=== PATIENT | female | born 1965 | race Two or more races ===

== ENCOUNTER 2016-11-14 21:26 | Emergency (ER) | payer OTHER ==
[2016-11-14] MEDS ORDERED: IPRATROPIUM/ALBUTEROL 3 ML DEYVIAL ONE (21:34)
[2016-11-14] MEDS ORDERED: IPRATROPIUM/ALBUTEROL 3 ML DEYVIAL IH ONE (21:35)
[2016-11-14 21:43] VITALS: TEMP 98.1; O2SAT 92
[2016-11-14] MEDS ORDERED: ALBUTEROL 3 ML DEYVIAL ONE ×2 (22:03→23:25)
[2016-11-14] MEDS ORDERED: ALBUTEROL 3 ML DEYVIAL IH ONE ×2 (22:08→23:30)
[2016-11-14] MEDS ORDERED: methylPREDNISolone SOD SUCC 125 MG/2 ML VIAL ONE (22:11)
[2016-11-14] MEDS ORDERED: methylPREDNISolone SOD SUCC 125 MG/2 ML VIAL IVP ONE (22:15)
--- NOTE | 2016-11-14 22:15 | CPEKG ---
Heart Rate: 109 RR Interval: 550 P-R Interval: 144 QRSD Interval: 86 QT Interval: 304 QTC Interval: 410 P [place]: 64 QRS [place]: 16 T Wave [place]: 83 EKG Severity - ABNORMAL ECG - EKG Impression: SINUS TACHYCARDIA EKG Impression: REPOL ABNRM SUGGESTS ISCHEMIA, ANT-LAT LEADS Electronically Signed By: Ashutosh Hughes 14-Nov-2016 23:41:01
[2016-11-14 22:19] LABS: % IMMATURE GRANULYOCYTES 0.3 % (0.0-1.1); ABSOLUTE IMMATURE GRANULOCYTES 0.05 10^3/uL (0.00-0.10); ADD DIFF? NO; ADD MORPH? NO; ADD SCAN? NO; ATYPICAL LYMPHOCYTE FLAG 0 (0-99); FRAGMENT RBC FLAG 0 (0-99); HEMATOCRIT 45.1 % (38.0-47.0); HEMOGLOBIN 14.6 g/dL (12.6-16.3); LEFT SHIFT FLG 0 (0-99); LIPEMIA HEMOLYSIS FLAG 80 (0-99); MEAN CELL HEMOGLOBIN 25.6 pg (27.9-34.1); MEAN CELL HEMOGLOBIN CONCENTR. 32.4 g/dL (32.4-36.7); MEAN PLATELET VOLUME 10.8 fL (8.7-11.7); PLATELET CLUMPS FLAG 10 (0-99); PLATELET COUNT 304 10^3/uL (150-400); RED BLOOD CELL COUNT 5.71 10^6/uL (4.18-5.33); RED CELL DISTRIBUTION WIDTH 15.8 % (11.5-15.2)
[2016-11-14] MEDS ORDERED: AZITHROMYCIN 250 MG TAB PO ONE (22:24)
[2016-11-14 22:28] LABS: ANION GAP 18 mEq/L (8-16); CARBON DIOXIDE 23 mEq/l (22-31); CHLORIDE 102 mEq/L (97-110); CREATININE 0.7 mg/dL (0.6-1.0); GLOMERULAR FILTRATION RATE > 60; GLUCOSE 123 mg/dL (70-100); POTASSIUM 3.4 mEq/L (3.5-5.2); SODIUM 143 mEq/L (134-144)
[2016-11-14 22:41] LABS: TROPONIN I < 0.012 ng/mL (0-0.034)
--- NOTE | 2016-11-14 22:45 | UCPHY ---
H & P Patient Type: New Chief Complaint Nursing Narrative: c/o cough and sinus congestion x 1 month. Time Seen by Provider: 11/14/16 22:03 HPI/ROS: This patient has had cough for 1 month now. She saw her physician 1 week ago that was started on albuterol inhaler and Augmentin but has not improved is day developed dyspnea associated with her shortness of breath increasing wheezing. She complains of the shortness of breath the prompted her visit she has not had a spacer with her albuterol inhaler. She notes no other exacerbating factors. ROS: Mild fatigue. No other constitutional symptoms. HEENT: Nasal congestion no headache. Neuro: No confusion. No focal neuro complaints pulmonary: No pleuritic pain. Cardiovascular: No lightheadedness. No chest pain. GI: No abdominal pain. No vomiting. No diarrhea. Source: Patient, Family Exam Limitations: Language barrier (Her translates for her.) - Personal History LMP (Females 10-55): Now - Medical/Surgical History PMH: Hypertension off her atenolol for 1 week due to running out of the medication Other PMH: htn - Family History Significant Family History: No pertinent family hx - Social History Smoking Status: Never smoked Alcohol Use: None Drug Use: None - Physical Exam Exam: General Appearance: Pleasant female Alert, no distress but obvious increased work of breathing. Eyes: Pupils equal and round no pallor or injection. ENT, Mouth: Mucous membranes moist. Respiratory: Tight wheezing bilaterally with tachypnea. No rales. Mild rhonchi. Cardiovascular: Tachycardia. No JVD. No peripheral edema. Gastrointestinal: Abdomen is soft and nontender, no masses, bowel sounds normal. Neurological: Alert with no focal deficits Skin: Warm and dry, no rashes. Musculoskeletal: Neck is supple nontender. Extremities are symmetrical, full range of motion. Psychiatric: Mood and affect normal DIFFERENTIAL DIAGNOSIS: After history and physical exam differential diagnosis was considered for bronchitis with reactive airways, pneumonia, hypertensive emergency with CHF, Constitutional: Initial Vital Signs Temperature (C) 36.7 C 11/14/16 21:40 Heart Rate 107 H 11/14/16 21:40 Respiratory Rate 24 H 11/14/16 21:40 Blood Pressure 233/133 H 11/14/16 21:40 O2 Sat (%) 92 11/14/16 21:40 O2 Delivery Mode Room Air Allergies/Adverse Reactions: No Known Allergies Allergy (Verified 06/09/12 21:14) Home Medications: Medication Instructions Recorded Atenolol 25 mg PO BID 06/09/12 Albuterol Hfa Anes Only [Proair 11/14/16 Hfa Icu (*)] Albuterol Hfa Anes Only [Proair 2 puffs IH Q4 PRN #1 mdi 11/14/16 Hfa Icu (*)] Albuterol [Proventil Neb] 3 ml IH Q4 PRN #25 deyvial 11/14/16 Atenolol [Tenormin 25 mg (*)] 25 mg PO BID #60 tab 11/14/16 Augmentin 875 MG TAB (*) 11/14/16 Azithromycin [Zithromax] 250 mg PO DAILY #4 tab 11/14/16 predniSONE 60 mg PO DAILY #17 tab 11/14/16 Medical Decision Making - Diagnostics EKG Interpretation: 12 lead EKG performed at 10:13 p.m. reveals sinus tachycardia 109 Intervals: Normal throughout Frannie: Normal throughout ST depression anterolaterally cannot rule out ischemia Imaging: Chest x-ray: Airway disease with no pneumonia by my interpretation ED Course/Re-evaluation: IV Clonidine p.o. for hypertension with improvement DuoNeb and albuterol neb with increased aeration decreased wheeze subjective improvement, peak flow 280 Zithromax p.o. Review of her labs reveals leukocytosis Troponin and BNP are normal. Electrolytes unremarkable Discussion: Patient with bronchitis significant reactive airway disease causing dyspnea that improved significantly with treatment here. She also has hypertensive urgency but no evidence of end-organ injury. I think that her mild strain pattern on EKG is attributable to her hypertension but there is no evidence of cardiac injury with a normal troponin. She responded well with the clonidine with improvement in her blood pressure. The time discharge she is comfortable and will go home with no albuterol neb machine, Zithromax, she will restart her atenolol and follow up primary care physician. She understands the need to go the emergency department if she has any worsening symptoms - Data Points Laboratory Results: Laboratory Results 11/14/16 21:50 11/14/16 21:50 11/14/16 11/14/16 11/14/16 21:50 21:50 21:50 WBC 15.75 10^3/uL H 10^3/uL (3.80-9.50) RBC 5.71 10^6/uL H 10^6/uL (4.18-5.33) Hgb 14.6 g/dL g/dL (12.6-16.3) Hct 45.1 % % (38.0-47.0) MCV 79.0 fL L fL (81.5-99.8) MCH 25.6 pg L pg (27.9-34.1) MCHC 32.4 g/dL g/dL (32.4-36.7) RDW 15.8 % H % (11.5-15.2) Plt Count 304 10^3/uL 10^3/uL (150-400) MPV 10.8 fL fL (8.7-11.7) Neut % (Auto) 55.8 % % (39.3-74.2) Lymph % (Auto) 32.3 % % (15.0-45.0) [place] % (Auto) 6.5 % % (4.5-13.0) Eos % (Auto) 4.3 % % (0.6-7.6) Baso % (Auto) 0.8 % % (0.3-1.7) Nucleat RBC Rel Count 0.0 % % (0.0-0.2) Absolute Neuts (auto) 8.81 10^3/uL H 10^3/uL (1.70-6.50) Absolute Lymphs (auto) 5.08 10^3/uL H 10^3/uL (1.00-3.00) Absolute Monos (auto) 1.02 10^3/uL H 10^3/uL (0.30-0.80) Absolute Eos (auto) 0.67 10^3/uL H 10^3/uL (0.03-0.40) Absolute Basos (auto) 0.12 10^3/uL H 10^3/uL (0.02-0.10) Absolute Nucleated RBC 0.00 10^3/uL 10^3/uL (0-0.01) Immature Gran % 0.3 % % (0.0-1.1) Immature Gran # 0.05 10^3/uL 10^3/uL (0.00-0.10) Sodium 143 mEq/L mEq/L (134-144) Potassium 3.4 mEq/L L mEq/L (3.5-5.2) Chloride 102 mEq/L mEq/L (97-110) Carbon Dioxide 23 mEq/l mEq/l (22-31) Anion Gap 18 mEq/L H mEq/L (8-16) BUN 6 mg/dL L mg/dL (7-23) Creatinine 0.7 mg/dL mg/dL (0.6-1.0) Estimated GFR > 60 Glucose 123 mg/dL H mg/dL (70-100) Calcium 9.0 mg/dL mg/dL (8.5-10.4) Troponin I < 0.012 ng/mL ng/mL (0-0.034) NT-Pro-B Natriuret Pep 62 pg/mL pg/mL (0-125) Medications Given: Discontinued Medications Albuterol (Proventil Neb) 3 ml IH EDNOW ONE Stop: 11/14/16 22:09 Last Admin: 11/14/16 22:09 Dose: 3 ml Albuterol/Ipratropium (Duoneb) 3 ml IH EDNOW ONE Stop: 11/14/16 21:36 Last Admin: 11/14/16 21:35 Dose: 3 ml Azithromycin (Zithromax) 500 mg PO EDNOW ONE PRN Reason: Protocol Stop: 11/14/16 22:25 Last Admin: 11/14/16 22:30 Dose: 500 mg Clonidine (Catapres) 0.2 mg PO EDNOW ONE Stop: 11/14/16 22:12 Last Admin: 11/14/16 22:18 Dose: 0.2 mg Methylprednisolone Sodium Succinate (Solu-Medrol) 125 mg IVP EDNOW ONE Stop: 11/14/16 22:16 Last Admin: 11/14/16 22:16 Dose: 125 mg Departure - Departure Disposition: Home, Routine, Self-Care Clinical Impression: Dyspnea Qualifiers: Dyspnea type: unspecified Qualified Code(s): R06.00 - Dyspnea, unspecified Acute bronchitis Qualifiers: Bronchitis organism: unspecified organism Qualified Code(s): J20.9 - Acute bronchitis, unspecified Reactive airway disease Qualifiers: Asthma severity: unspecified severity Asthma complication type: with acute exacerbation Qualified Code(s): J45.901 - Unspecified asthma with (acute) exacerbation Hypertension Qualifiers: Hypertension type: essential hypertension Qualified Code(s): I10 - Essential ( primary) hypertension Condition: Good Instructions: Acute Bronchitis (ED), Hypertension (ED) Additional Instructions: Diagnosis: 1. Acute bronchitis 2. Dyspnea 3. Hypertension Plan: Restart your Tylenol tomorrow morning and continue taking daily. Zithromax antibiotic Prednisone steroid as prescribed Albuterol inhaler with spacer or albuterol nebulizer for cough, wheeze or shortness of breath Go to the emergency department for any significant worsening despite the treatment plan. Follow up with primary care physician sometime in the next 3-7 days Referrals: CAIO DOVE,. [Primary Care Provider] - As per Instructions Prescriptions: Albuterol [Proventil Neb] 3 ml IH Q4 PRN #25 deyvial PRN Reason: Wheezing Albuterol Hfa Anes Only [Proair Hfa Icu (*)] 2 puffs IH Q4 PRN #1 mdi PRN Reason: Wheezing Atenolol [Tenormin 25 mg (*)] 25 mg PO BID #60 tab Azithromycin [Zithromax] 250 mg PO DAILY #4 tab predniSONE 60 mg PO DAILY #17 tab - PQRS PQRS Measurement: NA
[2016-11-15 00:01] VITALS: BP 182/109; PULSE 109; RESP 18
== END 2016-11-14 23:30 | disposition home or self-care (01) ==
LOC: CED 21:26
DX: J20.9 Acute bronchitis, unspecified (principal); J45.901 Unspecified asthma with (acute) exacerbation; R06.00 Dyspnea, unspecified; I10 Essential (primary) hypertension
CPT/HCPCS: 71020-PO; 80048-PO; 83880-PO; 84484-PO; 85025-PO; 93010-PO; 96374-PO; 99205-PO; G0463-PO

== ENCOUNTER 2017-04-08 14:17 | Emergency (ER) | payer OTHER ==
[2017-04-08] MEDS ORDERED: NS 1,000 ML IV ONE ×2 (14:42→15:39)
--- NOTE | 2017-04-08 14:42 | EDPHY ---
H & P Time Seen by Provider: 04/08/17 14:39 HPI/ROS: CHIEF COMPLAINT: Left flank pain, suprapubic pain HISTORY OF PRESENT ILLNESS: The patient is a 51-year-old female who presents to the emergency department with flank pain and suprapubic pain. Her symptoms started 3 days ago. She states it progressively worsened today. Her pain is severe. She has had dysuria with no frequency. No hematuria. She denies fevers or chills. No nausea vomiting. She had a urinary tract infection 2 months ago. Her last menstrual period was 03/26/2017. She is G3 para 3. No vaginal discharge. REVIEW OF SYSTEMS: My complete review of systems is negative except as mentioned in the HPI. Past Medical/Surgical History: Includes hypertension Past surgical history: x3 Social history: The patient does not smoke use alcohol. Smoking Status: Never smoked Physical Exam: Vitals noted. Afebrile. The 200/109, 79, 18, 36.5, 98% on room air GENERAL: No acute distress, alert. HEENT: Eyes normal to inspection, normal pharynx, no signs of dehydration. NECK: No thyromegaly, no lymphadenopathy, supple. RESPIRATORY: Clear to auscultation bilaterally, no rales, rhonchi or wheezing. CVS: Regular rate and rhythm, no rubs, murmurs, or gallops. ABDOMEN: Soft, mild suprapubic tenderness to palpation with no rebound or guarding, nondistended, no organomegaly. BACK: Normal to inspection, no CVA tenderness. SKIN: Normal color, no rash, warm, dry. No pallor. EXTREMITIES: No pedal edema, no joint swelling. NEURO/PSYCH: Alert and oriented, normal mood and affect Constitutional: Initial Vital Signs Temperature (C) 36.5 C 04/08/17 14:28 Heart Rate 79 04/08/17 14:28 Respiratory Rate 18 04/08/17 14:28 Blood Pressure 200/109 H 04/08/17 14:28 O2 Sat (%) 98 04/08/17 14:28 O2 Delivery Mode Room Air Allergies/Adverse Reactions: No Known Allergies Allergy (Verified 04/08/17 14:26) Home Medications: Medication Instructions Recorded Atenolol [Tenormin 25 mg (*)] 25 mg PO BID #60 tab 11/14/16 Medical Decision Making ED Course/Re-evaluation: In the emergency department I discussed possible etiologies with the patient. I answered all her questions. An IV was placed. Patient was given normal saline IV for hydration. Differential Diagnosis: My differential includes but is not limited to urinary tract infection, pyelonephritis, bacteremia, sepsis, ovarian cyst, ovarian torsion, , ectopic Departure - Departure Disposition: Home, Routine, Self-Care Clinical Impression: Acute left flank pain, Suprapubic pain, acute Condition: Good
[2017-04-08 14:47] LABS: COLOR YELLOW; LEUKOCYTE ESTERASE,URINE NEGATIVE (NEGATIVE); NITRITE,URINE NEGATIVE (NEGATIVE)
[2017-04-08] MEDS ORDERED: KETOROLAC 30 MG/1 ML SDV IVP ONE (15:39)
[2017-04-08] MEDS ORDERED: KETOROLAC 15 MG/1 ML SDV ONE (15:39)
--- NOTE | 2017-04-08 15:44 | EDPHY ---
H & P Time Seen by Provider: 04/08/17 14:39 Smoking Status: Never smoked Constitutional: Initial Vital Signs Temperature (C) 36.5 C 04/08/17 14:28 Heart Rate 79 04/08/17 14:28 Respiratory Rate 18 04/08/17 14:28 Blood Pressure 200/109 H 04/08/17 14:28 O2 Sat (%) 98 04/08/17 14:28 O2 Delivery Mode Room Air Allergies/Adverse Reactions: No Known Allergies Allergy (Verified 04/08/17 14:26) Home Medications: Medication Instructions Recorded Atenolol [Tenormin 25 mg (*)] 25 mg PO BID #60 tab 11/14/16 Doxycycline Monohydrate 100 mg PO BID #28 capsule 04/08/17 metroNIDAZOLE [Flagyl 500 mg (*)] 500 mg PO BID #14 tab 04/08/17 Medical Decision Making ED Course/Re-evaluation: Please see prior note by Dr. Fung for complete details of history and physical. I assumed care pending results of urine and re-evaluation. Patient' s urinalysis showed no evidence of infection or blood and she was not . I did a re-evaluation of the patient who complains of ongoing lower abdominal and bilateral left greater than right flank pain. In addition she complains of feeling very dizzy despite receiving 1 L of fluid. She describes the dizziness as like she is going to fall and also like the room is spinning. She denies any nausea or vomiting. Her symptoms been going on for couple days but are worse today. She also complains of some white vaginal discharge and recently irregular periods. Patient has a history of high blood pressure and states that she did take her blood pressure medicine this morning. Her blood pressure remained elevated during her year stay. We discussed the need to follow up with her primary care physician regarding this. I performed a pelvic exam which revealed thick white discharge, minimal cervical motion tenderness but marked bilateral adnexal tenderness and suprapubic tenderness and right adnexal fullness. Swabs were sent for GC, Chlamydia and bacterial vaginal pathogens. I suspect PID but given her fullness in her adnexae and elevated white blood cell count I was concerned about ovarian abscess or torsion. Therefore a pelvic ultrasound was obtained. Ultrasound showed uterine fibroids but no evidence of adnexal masses or torsion. Patient was treated for PID in the ED we discharged home on antibiotics. I discussed the diagnosis with the patient and she can call to get the results of the GC and chlamydia test. - Data Points Laboratory Results: Laboratory Results 04/08/17 14:46 04/08/17 14:46 04/08/17 04/08/17 04/08/17 16:00 16:00 14:46 WBC RBC Hgb Hct MCV MCH MCHC RDW Plt Count MPV Neut % (Auto) Lymph % (Auto) [place] % (Auto) Eos % (Auto) Baso % (Auto) Nucleat RBC Rel Count Absolute Neuts (auto) Absolute Lymphs (auto) Absolute Monos (auto) Absolute Eos (auto) Absolute Basos (auto) Absolute Nucleated RBC Immature Gran % Immature Gran # Sodium 141 mEq/L mEq/L (134-144) Potassium 3.7 mEq/L mEq/L (3.5-5.2) Chloride 107 mEq/L mEq/L (97-110) Carbon Dioxide 21 mEq/l L mEq/l (22-31) Anion Gap 13 mEq/L mEq/L (8-16) BUN 9 mg/dL mg/dL (7-23) Creatinine 0.7 mg/dL mg/dL (0.6-1.0) Estimated GFR > 60 Glucose 107 mg/dL H mg/dL (70-100) Calcium 9.0 mg/dL mg/dL (8.5-10.4) Urine Color Urine Appearance Urine pH Ur Specific [place] Urine Protein Urine Ketones Urine Blood Urine Nitrate Urine Bilirubin Urine Urobilinogen Ur Leukocyte Esterase Urine Glucose Urine Test Brianda species DNA Pending C.trachomatis RNA (TMA) Pending Gardnerella DNA Probe Pending N.gonorrhoeae RNA (TMA) Pending Trichomonas DNA Probe Pending 04/08/17 04/08/17 04/08/17 14:46 14:40 14:40 WBC 10.83 10^3/uL H 10^3/uL (3.80-9.50) RBC 4.65 10^6/uL 10^6/uL (4.18-5.33) Hgb 10.9 g/dL L g/dL (12.6-16.3) Hct 35.1 % L % (38.0-47.0) MCV 75.5 fL L fL (81.5-99.8) MCH 23.4 pg L pg (27.9-34.1) MCHC 31.1 g/dL L g/dL (32.4-36.7) RDW 15.5 % H % (11.5-15.2) Plt Count 340 10^3/uL 10^3/uL (150-400) MPV 11.7 fL fL (8.7-11.7) Neut % (Auto) 60.9 % % (39.3-74.2) Lymph % (Auto) 29.5 % % (15.0-45.0) [place] % (Auto) 7.0 % % (4.5-13.0) Eos % (Auto) 1.3 % % (0.6-7.6) Baso % (Auto) 1.0 % % (0.3-1.7) Nucleat RBC Rel Count 0.0 % % (0.0-0.2) Absolute Neuts (auto) 6.60 10^3/uL H 10^3/uL (1.70-6.50) Absolute Lymphs (auto) 3.19 10^3/uL H 10^3/uL (1.00-3.00) Absolute Monos (auto) 0.76 10^3/uL 10^3/uL (0.30-0.80) Absolute Eos (auto) 0.14 10^3/uL 10^3/uL (0.03-0.40) Absolute Basos (auto) 0.11 10^3/uL H 10^3/uL (0.02-0.10) Absolute Nucleated RBC 0.00 10^3/uL 10^3/uL (0-0.01) Immature Gran % 0.3 % % (0.0-1.1) Immature Gran # 0.03 10^3/uL 10^3/uL (0.00-0.10) Sodium Potassium Chloride Carbon Dioxide Anion Gap BUN Creatinine Estimated GFR Glucose Calcium Urine Color YELLOW Urine Appearance CLEAR Urine pH 7.0 (5.0-7.5) Ur Specific [place] <= 1.005 (1.002-1.030) Urine Protein NEGATIVE (NEGATIVE) Urine Ketones NEGATIVE (NEGATIVE) Urine Blood NEGATIVE (NEGATIVE) Urine Nitrate NEGATIVE (NEGATIVE) Urine Bilirubin NEGATIVE (NEGATIVE) Urine Urobilinogen 0.2 EU EU (0.2-1.0) Ur Leukocyte Esterase NEGATIVE (NEGATIVE) Urine Glucose NEGATIVE (NEGATIVE) Urine Test NEGATIVE Brianda species DNA C.trachomatis RNA (TMA) Gardnerella DNA Probe N.gonorrhoeae RNA (TMA) Trichomonas DNA Probe Medications Given: Discontinued Medications Ceftriaxone Sodium (Rocephin 250mg Vial) 500 mg IM EDNOW ONE PRN Reason: Protocol Stop: 04/08/17 16:10 Last Admin: 04/08/17 16:35 Dose: 500 mg Doxycycline Hyclate (Doxycycline Hyclate) 100 mg PO EDNOW ONE PRN Reason: Protocol Stop: 04/08/17 16:10 Last Admin: 04/08/17 16:34 Dose: 100 mg Sodium Chloride (Ns) 1,000 mls @ 0 mls/hr IV ONCE ONE PRN Reason: Wide Open Stop: 04/08/17 14:43 Last Admin: 04/08/17 14:44 Dose: 1,000 mls Sodium Chloride (Ns) 1,000 mls @ 0 mls/hr IV ONCE ONE; Wide Open PRN Reason: Protocol Stop: 04/08/17 15:40 Last Admin: 04/08/17 15:47 Dose: 1,000 mls Ketorolac Tromethamine (Toradol) 15 mg IVP EDNOW ONE Stop: 04/08/17 15:40 Last Admin: 04/08/17 15:48 Dose: 15 mg Metronidazole (Flagyl) 500 mg PO EDNOW ONE PRN Reason: Protocol Stop: 04/08/17 16:11 Last Admin: 04/08/17 16:34 Dose: 500 mg Departure - Departure Disposition: Home, Routine, Self-Care Clinical Impression: Acute left flank pain, Suprapubic pain, acute, Acute pelvic inflammatory disease (PID) Condition: Good Instructions: Pelvic Inflammatory Disease (ED) Additional Instructions: You were seen by Dr. Belle Enriquez today. You may call to get the results of the cultures, however we will treat you for a pelvic infection. Please take all the antibiotics as prescribed. You may take ibuprofen 600 mg 4 times a day with acetaminophen (Tylenol) a 1000 mg every 6 hours as needed for pain. Return for any worsening or new concerns. Prescriptions: Doxycycline Monohydrate 100 mg PO BID #28 capsule metroNIDAZOLE [Flagyl 500 mg (*)] 500 mg PO BID #14 tab
[2017-04-08 15:48] LABS: % IMMATURE GRANULYOCYTES 0.3 % (0.0-1.1); ABSOLUTE IMMATURE GRANULOCYTES 0.03 10^3/uL (0.00-0.10); ADD DIFF? NO; ADD MORPH? NO; ADD SCAN? NO; ATYPICAL LYMPHOCYTE FLAG 0 (0-99); FRAGMENT RBC FLAG 20 (0-99); HEMATOCRIT 35.1 % (38.0-47.0); HEMOGLOBIN 10.9 g/dL (12.6-16.3); LEFT SHIFT FLG 0 (0-99); LIPEMIA HEMOLYSIS FLAG 80 (0-99); MEAN CELL HEMOGLOBIN 23.4 pg (27.9-34.1); MEAN CELL HEMOGLOBIN CONCENTR. 31.1 g/dL (32.4-36.7); MEAN CELL VOLUME 75.5 fL (81.5-99.8); MEAN PLATELET VOLUME 11.7 fL (8.7-11.7); PLATELET CLUMPS FLAG 0 (0-99); PLATELET COUNT 340 10^3/uL (150-400); RED BLOOD CELL COUNT 4.65 10^6/uL (4.18-5.33); RED CELL DISTRIBUTION WIDTH 15.5 % (11.5-15.2)
[2017-04-08 15:54] LABS: ANION GAP 13 mEq/L (8-16); CARBON DIOXIDE 21 mEq/l (22-31); CHLORIDE 107 mEq/L (97-110); CREATININE 0.7 mg/dL (0.6-1.0); GLOMERULAR FILTRATION RATE > 60; GLUCOSE 107 mg/dL (70-100); POTASSIUM 3.7 mEq/L (3.5-5.2); SODIUM 141 mEq/L (134-144)
[2017-04-08] MEDS ORDERED: cefTRIAXone 250 MG VIAL IM ONE (16:09)
[2017-04-08] MEDS ORDERED: DOXYCYCLINE HYCLATE 100 MG CAP/TAB PO ONE (16:09)
[2017-04-08] MEDS ORDERED: metroNIDAZOLE 500 MG TAB PO ONE (16:10)
[2017-04-08] MEDS ORDERED: cefTRIAXone 250 MG VIAL ONE (16:33)
[2017-04-08 17:03] VITALS: RESP 16
[2017-04-08 18:03] VITALS: BP 173/103; PULSE 82; TEMP 98.6; O2SAT 96
[2017-04-10 13:28] LABS: CHLAMYDIA AMPLIFICATION GENPRB NEGATIVE (NEGATIVE)
== END 2017-04-08 18:23 | disposition home or self-care (01) ==
LOC: CED 14:17
DX: N73.9 Female pelvic inflammatory disease, unspecified (principal); I10 Essential (primary) hypertension; E86.9 Volume depletion, unspecified
CPT/HCPCS: 76856-PO; 80048-PO; 81003-PO; 81025-PO; 85025-PO; 96374; J0696; J1885

== ENCOUNTER 2017-09-29 11:02 | Emergency (ER) | payer OTHER ==
[2017-09-29 11:14] VITALS: O2SAT 98
--- NOTE | 2017-09-29 11:35 | EDPHY ---
H & P Stated Complaint: LOWER ABD PAIN/NAUSEA Time Seen by Provider: 09/29/17 11:15 HPI/ROS: CHIEF COMPLAINT: Abdominal pain History by patient HISTORY OF PRESENT ILLNESS: 52-year-old woman presents complaining of 24 hr of lower abdominal pain as well as back pain radiating around to her front she describes as squeezing and constant. Pain is worse on the left side of her back. Not associated with any fever, chills, nausea or vomiting. She does have some dysuria, urgency and frequency. It feels similar to when she has had a urinary tract infection in the past. There has been no diarrhea and she had a normal bowel movement this morning. She has been able to eat and drink without difficulty and this does not seem to affect the pain at all. She is perimenopausal her last menstrual period was 3 weeks ago. She denies any vaginal discharge or bleeding. She tried taking some ibuprofen which took the edge off the pain. Her brother has a history of kidney stones. She has no prior history of kidney stones. REVIEW OF SYSTEMS: As in HPI, and all other systems reviewed and are negative Source: Patient, Family - Personal History LMP (Females 10-55): Unknown Current Tetanus Diphtheria and Acellular Pertussis (TDAP): Yes - Medical/Surgical History Hx Asthma: No Hx Chronic Respiratory Disease: No Hx Diabetes: No Hx Cardiac Disease: No Hx Renal Disease: No Hx Cirrhosis: No Hx Alcoholism: No Hx HIV/AIDS: No Hx Splenectomy or Spleen Trauma: No Other PMH: htn - Social History Smoking Status: Never smoked - Physical Exam Exam: General Appearance: Alert, obese, nontoxic-appearing. Eyes: Pupils equal and round, no pallor or injection. Mouth: Mucous membranes moist. Respiratory: Normal, effort, lungs are clear to auscultation. No wheezes, rales or rhonchi. Cardiovascular: Regular rate and rhythm. S1, S2, no murmurs, gallops or rubs appreciated Gastrointestinal: bowel sounds present, Abdomen is soft and nondistended, nontender, no masses Back: Left greater than right CVA tenderness, no bony tenderness Neurological: Awake, alert and oriented x 3, no pronator drift, normal gait, no pronator drift Skin: Warm and dry, no rashes. Musculoskeletal: No deformities or tenderness. Extremities: full range of motion, no edema Psychiatric: Patient has normal affect, there is no agitation. Constitutional: Initial Vital Signs Temperature (C) 36.5 C 09/29/17 11:12 Heart Rate 95 09/29/17 11:12 Respiratory Rate 18 09/29/17 11:12 Blood Pressure 195/119 H 09/29/17 11:12 O2 Sat (%) 98 09/29/17 11:12 O2 Delivery Mode Room Air Allergies/Adverse Reactions: No Known Allergies Allergy (Verified 04/08/17 14:26) Home Medications: Medication Instructions Recorded Atenolol [Tenormin 25 mg (*)] 25 mg PO BID #60 tab 11/14/16 Cyclobenzaprine [Flexeril 10 MG 10 mg PO TID #4 tab 09/29/17 (*)] Ibuprofen 600 mg PO Q6HRS #30 tablet 09/29/17 Nitrofurantoin Monohyd/M-Cryst 100 mg PO BID #10 capsule 09/29/17 [Macrobid 100 mg Capsule] Medical Decision Making - Diagnostics Imaging: Discussed imaging studies w/ machine scallop cutter Radiologist ED Course/Re-evaluation: 52-year-old woman presents with urinary symptoms and flank pain and CVA tenderness. I was concerned about urinary tract infection and kidney stone. Urinalysis was more consistent stone given minimal white blood cells. On review of old records patient's prior visit for UTI she had a negative urine at that time too. Therefore blood work and CT scan ordered to evaluate for kidney stone and check kidney function. Patient was given IV fluids. She declined further pain medicines. 12:[address] scan showed no evidence of hydronephrosis or ureterolithiasis or other acute explanation for the patient's symptoms. I therefore we will go ahead and send the patient's urine for culture and treat her for urinary tract infection to see if this improves her symptoms. I am recommending close follow-up with her primary care physician and return to the ER if she develops new symptoms or concerns. Patient does have an appointment pending with her primary care physician on Monday, 3 days from now. Patient requested additional a prescription for ibuprofen and a muscle relaxant which she says has helped her in the past with her back pain. - Data Points Laboratory Results: Laboratory Results 09/29/17 11:51 09/29/17 11:51 09/29/17 09/29/17 09/29/17 11:51 11:51 11:14 WBC 7.43 10^3/uL 10^3/uL (3.80-9.50) RBC 5.53 10^6/uL H 10^6/uL (4.18-5.33) Hgb 11.7 g/dL L g/dL (12.6-16.3) Hct 38.5 % % (38.0-47.0) MCV 69.6 fL L fL (81.5-99.8) MCH 21.2 pg L pg (27.9-34.1) MCHC 30.4 g/dL L g/dL (32.4-36.7) RDW 19.8 % H % (11.5-15.2) Plt Count 311 10^3/uL 10^3/uL (150-400) MPV 9.8 fL fL (8.7-11.7) Neut % (Auto) 58.1 % % (39.3-74.2) Lymph % (Auto) 32.7 % % (15.0-45.0) Price % (Auto) 6.5 % % (4.5-13.0) Eos % (Auto) 1.3 % % (0.6-7.6) Baso % (Auto) 1.1 % % (0.3-1.7) Nucleat RBC Rel Count 0.0 % % (0.0-0.2) Absolute Neuts (auto) 4.32 10^3/uL 10^3/uL (1.70-6.50) Absolute Lymphs (auto) 2.43 10^3/uL 10^3/uL (1.00-3.00) Absolute Monos (auto) 0.48 10^3/uL 10^3/uL (0.30-0.80) Absolute Eos (auto) 0.10 10^3/uL 10^3/uL (0.03-0.40) Absolute Basos (auto) 0.08 10^3/uL 10^3/uL (0.02-0.10) Absolute Nucleated RBC 0.00 10^3/uL 10^3/uL (0-0.01) Immature Gran % 0.3 % % (0.0-1.1) Immature Gran # 0.02 10^3/uL 10^3/uL (0.00-0.10) Platelet Estimate ADEQUATE (ADEQ) Microcytic Cells 1+ H Oval Macrocytes 1+ H Elliptocytes 1+ H Smear Review By Pending Sodium 145 mEq/L mEq/L (135-145) Potassium 3.9 mEq/L mEq/L (3.5-5.2) Chloride 105 mEq/L mEq/L (97-110) Carbon Dioxide 23 mEq/l mEq/l (22-31) Anion Gap 17 mEq/L H mEq/L (8-16) BUN 7 mg/dL mg/dL (7-23) Creatinine 0.7 mg/dL mg/dL (0.6-1.0) Estimated GFR > 60 Glucose 106 mg/dL H mg/dL (70-100) Calcium 9.0 mg/dL mg/dL (8.5-10.4) Urine Color YELLOW Urine Appearance HAZY Urine pH 7.0 (5.0-7.5) Ur Specific [place] 1.015 (1.002-1.030) Urine Protein TRACE H (NEGATIVE) Urine Ketones NEGATIVE (NEGATIVE) Urine Blood TRACE H (NEGATIVE) Urine Nitrate NEGATIVE (NEGATIVE) Urine Bilirubin NEGATIVE (NEGATIVE) Urine Urobilinogen 0.2 EU EU (0.2-1.0) Ur Leukocyte Esterase NEGATIVE (NEGATIVE) Urine RBC 3-5 /hpf H /hpf (0-3) Urine WBC 1-3 /hpf /hpf (0-3) Ur Epithelial Cells 1+ /lpf /lpf (NONE-1+) Urine Bacteria TRACE /hpf H /hpf (NONE SEEN) Urine Mucus TRACE /lpf /lpf (NONE-1+) Urine Glucose NEGATIVE (NEGATIVE) Medications Given: Discontinued Medications Sodium Chloride (Ns) 1,000 mls @ 0 mls/hr IV ONCE ONE; Wide Open PRN Reason: Protocol Stop: 09/29/17 11:41 Last Admin: 09/29/17 11:50 Dose: 1,000 mls Ketorolac Tromethamine (Toradol) 15 mg IVP EDNOW ONE Stop: 09/29/17 11:41 Last Admin: 09/29/17 11:50 Dose: Not Given Departure - Departure Disposition: Home, Routine, Self-Care Clinical Impression: Urinary tract infection Qualifiers: Urinary tract infection type: site unspecified Hematuria presence: with hematuria Qualified Code(s): N39.0 - Urinary tract infection, site not specified Condition: Good Instructions: Urinary Tract Infection in Women (ED) Additional Instructions: You were seen by Dr. Belle Enriquez today. Take antibiotics as prescribed. Continue ibuprofen and/or Tylenol as needed for pain. Please follow up primary care physician if her symptoms persist. Return for any worsening or new concerns. Referrals: Virginie Gonzalez NP [Primary Care Provider] - As per Instructions Prescriptions: Ibuprofen 600 mg PO Q6HRS #30 tablet Cyclobenzaprine [Flexeril 10 MG (*)] 10 mg PO TID #4 tab Nitrofurantoin Monohyd/M-Cryst [Macrobid 100 mg Capsule] 100 mg PO BID #10 capsule
[2017-09-29] MEDS ORDERED: KETOROLAC 30 MG/1 ML SDV IVP ONE (11:40)
[2017-09-29] MEDS ORDERED: NS 1,000 ML IV ONE (11:40)
[2017-09-29 12:01] LABS: PLATELET COUNT 311 10^3/uL (150-400)
[2017-09-29 12:52] VITALS: BP 187/108; PULSE 85; RESP 16; TEMP 97.9
== END 2017-09-29 12:49 | disposition home or self-care (01) ==
LOC: CED 11:02
DX: N39.0 Urinary tract infection, site not specified (principal); B96.89 Other specified bacterial agents as the cause of diseases classified elsewhere; E86.9 Volume depletion, unspecified; I10 Essential (primary) hypertension
CPT/HCPCS: 74176-PO; 80048-PO; 81003-PO; 81015-PO; 85025-PO